=== PATIENT | female | born 1990 | race Caucasian/White ===

== ENCOUNTER 2021-01-07 12:07 | Emergency (ER) | payer OTHER, SELFPAY ==
[2021-01-07 12:41] VITALS: BP 130/72; PULSE 69; RESP 20; TEMP 36.4; O2SAT 100
--- NOTE | 2021-01-07 12:58 | ED.URI ---
HPI - URI/Sore Throat General Chief Complaint: Upper Respiratory Infection Stated Complaint: cough/congestion/no voice Time Seen by Provider: 01/07/21 12:45 Source: patient Mode of arrival: ambulatory Limitations: no limitations History of Present Illness HPI Narrative: Claudia Dan is a 30 yo female with a PMH of anxiety depression who comes to [facility] with 8 days of sinus congestion and sore throat that is now turned into laryngitis she is very hoarse, feels somewhat fatigued. She had Covid November has received 2 vaccinations for Covid. She states she has tried Flonase nasal washes Zyrtec and Tylenol with no improvement Related Data Home Medications Medication Instructions Recorded Confirmed bupropion HCl mg PO 01/07/21 erenumab-aooe [Aimovig mg SUBCUT 01/07/21 Autoinjector] fluoxetine mg 01/07/21 fluoxetine mg 01/07/21 naproxen 01/07/21 Allergies Allergy/AdvReac Type Severity Reaction Status Date / Time prednisone Allergy Intermediate HIVES Verified 01/29/18 08:00 Review of Systems Review of Systems: Narrative: CONSTITUTIONAL: Denies fever, chills, sweats. EYES: Denies visual changes, redness, discharge. ENT: Has rhinorrhea, has congestion, now mild sore throat, otalgia. Very hoarse CARDIOVASCULAR: Denies chest pain, palpitations, edema. RESPIRATORY: Denies dyspnea, wheezing, cough GASTROINTESTINAL: Denies abdominal pain, nausea, vomiting, diarrhea. GENITOURINARY: Denies dysuria, hematuria, abnormal discharge SKIN: Denies rash or itching. NEUROLOGIC: Denies numbness, or focal weakness. PSYCHIATRIC: Denies anxiety or depression. [facility] Past Medical History Medical History Anxiety Depression Family History Family History (Updated 06/12/14 @ 07:13 by DOCTOR UNKNOWN) Grandparent Family history of coronary artery disease Other Diabetes mellitus Family history of malignant neoplasm of cervix Social History Social History Smoking status: Never smoker Alcohol intake: current Comments At time of signature, I agree with nursing past medical, surgical, social and family history. There is no relevant family history pertinent to the presenting complaint. Exam Narrative: Exam Narrative: GENERAL: This is a well-nourished, well-developed patient, in mild distress. HEAD: normocephalic, atraumatic. EYES: Sclera clear/white. Vision is grossly intact. EARS: External ears normal, auditory canals erythematous and without drainage, TMs normal without perforation. Hearing grossly intact. NOSE: External nose normal with nasal discharge, nares with redness, no rhinorrhea. THROAT: Mucous membranes moist, posterior pharynx mild erythema NECK: Neck supple, non-tender CARDIOVASCULAR: Regular rate and rhythm without murmurs, gallops, or rubs. RESPIRATORY: Clear to auscultation. Breath sounds equal bilaterally. No wheezes, rales, or rhonchi. GASTROINTESTINAL: Abdomen soft, non-tender, SKIN: warm, intact with no suspicious lesions or rash, good texture and turgor. NEURO: awake, alert, and oriented to person, place and time. There were no obvious focal neurologic abnormalities. Steady gait EXTREMITIES: Normal range of motion. BACK: Nontender without deformity Course Course Emergency Course: Patient comes to [facility] with 8 days of sinus congestion sore throat and laryngitis use has already treated the symptoms with Flonase Tylenol Zyrtec and nasal washes without any improvement Discussed treatment of symptoms with more aggressive means started on a Augmentin and prednisone x5 days. Patient to continue Zyrtec-patient to hydrate well Follow-up with primary care physician Vital Signs Vital signs: Vital Signs Temperature 97.5 F L 01/07/21 12:41 Pulse Rate 69 01/07/21 12:41 Respiratory Rate 20 01/07/21 12:41 Blood Pressure 130/72 01/07/21 12:41 Pulse Oximetry 100
== END 2021-01-07 13:10 | disposition home or self-care (01) ==
PROVIDERS: Emergency Provider Nurse Practitioner; PCP Registered Nurse
DX: J04.0 Acute laryngitis (principal); J06.9 Acute upper respiratory infection, unspecified; F41.9 Anxiety disorder, unspecified; F32.9 Major depressive disorder, single episode, unspecified
CPT/HCPCS: 99213; G0463

== ENCOUNTER 2021-08-13 11:02 | Outpatient (CLI) | payer OTHER, SELFPAY ==
[2021-08-13 11:43] LABS: Add Urine Microscopic? NO; Appearance Urine Clear (Clear); Basophils Percent Auto 0.3 % (0.2-1.2); Bilirubin Urine Negative (Negative); Blood Urine Negative (Negative); Color Urine Straw (Yellow); Eosinophils Absolute Auto 0.1 K/mm3 (0-0.3); Eosinophils Percent Auto 0.5 % (0-4.4); Glucose Urine UA Negative (Negative); Hematocrit 31.7 % (37.0-47.0); Hemoglobin 9.8 g/dL (12.0-15.0); Immature Granulocyte Absolute 0.07 K/mm3 (0.00-0.031); Immature Granulocyte Percent A 0.6 % (0-0.5); Ketones Urine Negative (Negative); Leukocyte Esterase Ur Negative LEU/UL (NEGATIVE); Lymphocytes Absolute Auto 1.52 K/mm3 (0.9-3.2); Lymphocytes Percent Auto 12.7 % (18.3-44.2); Mean Corpuscular HGB Conc 30.9 g/dl (32-36); Mean Corpuscular Hemoglobin 27.1 pg (26-34); Mean Corpuscular Volume 87.6 fl (80-100); Mean Platelet Volume 10.6 fl (7.4-10.4); Monocytes Absolute Auto 0.7 K/mm3 (0.1-0.6); Monocytes Percent Auto 5.9 % (2.6-8.5); Neutrophils Absolute Auto 9.6 K/mm3 (1.3-6.7); Nitrate Urine Negative (Negative); Platelet Count Result 277 k/mm3 (150-375); Protein Urine Negative (Negative); Red Blood Count 3.62 M/mm3 (4.2-5.4); Red Cell Distribution Width 16.1 % (11.5-14.5); Specific Grav Ur 1.005 (1.001-1.035); Urobilinogen Urine Negative mg/dL (<2.0)
[2021-08-13 11:45] VITALS: BP 138/61; PULSE 84
[2021-08-13 12:00] VITALS: BP 119/78; PULSE 82
[2021-08-13 12:00] LABS: Alanine Aminotransferase 13 U/L (4-35); Albumin Level 3.6 g/dL (3.5-5.1); Alkaline Phosphatase 123 U/L (38-126); Anion Gap 8 mmol/L (8-16); Aspartate Amino Transferase 15 U/L (14-36); Bilirubin,Total 0.3 mg/dL (0.2-1.3); Blood Urea Nitrogen 5 mg/dL (7-17); Calcium 8.5 mg/dL (8.4-10.2); Carbon Dioxide 21 mmol/L (22-30); Chloride 107 mmol/L (98-107); Estimated Glomerular Filt Rate > 60; Glucose 156 mg/dL (65-110); Potassium 3.9 mmol/L (3.4-5.0); Sodium 136 mmol/L (137-145); Uric Acid 4.8 mg/dL (2.5-7.5)
[2021-08-13 12:15] VITALS: BP 117/66; PULSE 79
[2021-08-13 12:30] VITALS: BP 118/68; BP 138/61; PULSE 81; PULSE 83
--- NOTE | 2021-08-13 12:35 | PC.NURSE ---
Dr Pedroza notified of lab results and BP's. OK to dc home with HIP precautions.
[2021-08-13 14:00] LABS: Creatinine Urine 37.7 mg/dL; Total Protein Urine Random 15 mg/dL
== END 2021-08-13 12:42 | disposition home or self-care (01) ==
LOC: ANHOBOP 11:08 → ANHOBPP 11:16
PROVIDERS: PCP Registered Nurse; Visit Provider Obstetrics & Gynecology
DX: O13.9 Gestational [pregnancy-induced] hypertension without significant proteinuria, unspecified trimester (principal)
CPT/HCPCS: 36415; 59025; 80053; 81003; 82570; 84156; 84550; 85025; 87086; 99199

== ENCOUNTER 2021-09-20 14:11 | Outpatient (RCR) | payer OTHER, SELFPAY ==
[2021-09-20 15:27] VITALS: BP 120/72; PULSE 84
== END 2021-10-14 13:44 | disposition home or self-care (01) ==
LOC: ANHOBOP 14:11
PROVIDERS: PCP Registered Nurse; Visit Provider Obstetrics & Gynecology
DX: O36.8130 Decreased fetal movements, third trimester, not applicable or unspecified (principal); Z3A.36 36 weeks gestation of pregnancy
CPT/HCPCS: 59025

== ENCOUNTER 2021-10-01 10:05 | Observation (INO) | payer OTHER, SELFPAY ==
--- NOTE | 2021-10-01 10:05 | OBADM ---
This patient, Claudia Dan, admitted to the OB room OB Post 117 for observation. Patient/family oriented to hospital policies and general routines including ID bracelet, bed and alarms, visiting hours, pain management, procedures, bathroom and other care routines, personal items, smoking policy, room service/diet, and visiting hours. Patient/Family are encouraged to report perceived risks to care and to ask questions if they do not understand what they are told or what they should do.
[2021-10-01 12:15] VITALS: BP 123/78; PULSE 81
[2021-10-01 12:30] VITALS: BP 123/78; PULSE 90
[2021-10-01 12:45] VITALS: BP 128/75; PULSE 86
--- NOTE | 2021-10-20 16:57 | PM.OBTRLD ---
OB - Triage/Final Diagnosis Visit Information Comments/Additional reasons for admission: I have assessed the risk for this patient, Claudia Dan, and determined that she would benefit from observation care. Final Diagnosis (1) Vaginal spotting: Code(s): N93.9 - Abnormal uterine and vaginal bleeding, unspecified Status: Acute
== END 2021-10-01 12:55 | disposition home or self-care (01) ==
PROVIDERS: Admitting Provider Obstetrics & Gynecology; PCP Registered Nurse; Visit Provider Obstetrics & Gynecology
DX: O26.853 Spotting complicating pregnancy, third trimester (principal); Z3A.38 38 weeks gestation of pregnancy
CPT/HCPCS: G0378; G0379

== ENCOUNTER 2021-10-05 12:23 | Inpatient (IN) | payer OTHER, SELFPAY ==
[2021-10-05] VITALS (137 sets, daily range): BP systolic 90–134; BP diastolic 43–83; PULSE 59–122; RESP 18–20; TEMP 36.8–37.7; O2SAT 97–100; BMI 45.6
[2021-10-05] MEDS: LACTATED RINGERS 1,000 ML 125 ML IV CONT ×3 (13:54→22:00)
[2021-10-05 13:55] LABS: Basophils Percent Auto 0.2 % (0.2-1.2); Eosinophils Percent Auto 0.3 % (0-4.4); Hematocrit 38.1 % (37.0-47.0); Hemoglobin 12.4 g/dL (12.0-15.0); Immature Granulocyte Absolute 0.06 K/mm3 (0.00-0.031); Immature Granulocyte Percent A 0.6 % (0-0.5); Lymphocytes Absolute Auto 1.55 K/mm3 (0.9-3.2); Lymphocytes Percent Auto 16.8 % (18.3-44.2); Mean Corpuscular HGB Conc 32.5 g/dl (32-36); Mean Corpuscular Hemoglobin 28.1 pg (26-34); Mean Corpuscular Volume 86.4 fl (80-100); Mean Platelet Volume 11.7 fl (7.4-10.4); Monocytes Absolute Auto 0.6 K/mm3 (0.1-0.6); Monocytes Percent Auto 6.6 % (2.6-8.5); Neutrophils Percent Auto 75.5 % (45.5-73.1); Platelet Count Result 271 k/mm3 (150-375); Red Blood Count 4.41 M/mm3 (4.2-5.4); Red Cell Distribution Width 17.3 % (11.5-14.5); White Blood Count 9.2 K/mm3 (4.5-10.0)
[2021-10-05] MEDS: AMPICILLIN 2 GM/NS 100 ML 2 GM/100 ML BAG IVPB (13:56)
--- NOTE | 2021-10-05 13:59 | LDADM ---
This patient, Claudia Dan, was admitted to Labor/Delivery/Recovery 106 on 10/05/21 at 12:23. Plans for labor, pain management and were discussed with patient. Patient/family oriented to hospital policies and general routines including ID bracelet, bed and alarms, visiting hours, pain management, procedures, bathroom and other care routines, personal items, smoking policy, room service/diet and guest tray routines, infant security routines, and visiting hours. Patient/Family are encouraged to report perceived risks to care and to ask questions if they do not understand what they are told or what they should do. See OBIX for further documentation.
--- NOTE | 2021-10-05 15:52 | WPDANESEPPF ---
Anes - Initial Pre Proc Eval Date/Time: 10/05/21 15:52 Surgeon: Richard Resendez MD Pre Op Diagnosis: Rupture of Membrane Patient Data Age: 31 Gender: F Height: 1.65 m Weight: 124.5 kg Last Vital Signs Temp 36.9 C 10/05/21 14:10 Pulse 80 10/05/21 15:31 Resp 18 10/05/21 14:10 BP 121/68 10/05/21 15:31 Allergies Allergy/AdvReac Type Severity Reaction Status Date / Time No Known Allergies Allergy Verified 10/05/21 13:57 Home Medications Medication Instructions Recorded Confirmed Type fluoxetine 20 mg 01/07/21 History fluoxetine 40 mg 01/07/21 History Zyrtec 10 mg PO DAILY 09/13/21 09/13/21 History docusate sodium [Colace] 100 mg PO DAILY 09/13/21 09/13/21 History ferrous sulfate 325 mg PO DAILY 09/13/21 09/13/21 History folic acid 0.8 mg PO DAILY 09/13/21 09/13/21 History prenat.vits,meagan,zau-[id number] 1 tablet PO DAILY 09/13/21 09/13/21 History Laboratory Tests 10/05/21 10/05/21 10/05/21 13:28 13:28 13:28 WBC 9.2 K/mm3 K/mm3 (4.5-10.0) RBC 4.41 M/mm3 M/mm3 (4.2-5.4) Hgb 12.4 g/dL g/dL (12.0-15.0) Hct 38.1 % % (37.0-47.0) MCV 86.4 fl fl (80-100) MCH 28.1 pg pg (26-34) MCHC 32.5 g/dl g/dl (32-36) RDW 17.3 % H % (11.5-14.5) Plt Count 271 k/mm3 k/mm3 (150-375) MPV 11.7 fl H fl (7.4-10.4) Immature Gran % (Auto) 0.6 % H % (0-0.5) Neut % (Auto) 75.5 % H % (45.5-73.1) Lymph % (Auto) 16.8 % L % (18.3-44.2) Bent % (Auto) 6.6 % % (2.6-8.5) Eos % (Auto) 0.3 % % (0-4.4) Baso % (Auto) 0.2 % % (0.2-1.2) Lymph # (Auto) 1.55 K/mm3 K/mm3 (0.9-3.2) Bent # (Auto) 0.6 K/mm3 K/mm3 (0.1-0.6) Eos # (Auto) 0.0 K/mm3 K/mm3 (0-0.3) Baso # (Auto) 0.0 K/mm3 K/mm3 (0.0-0.1) Abs Immat Gran (auto) 0.06 K/mm3 H K/mm3 (0.00-0.031) Absolute Neuts (auto) 7.0 K/mm3 H K/mm3 (1.3-6.7) Absolute Nucleated RBC 0.0 K/mm3 K/mm3 (0.0-0.012) Nucleated RBC % 0.0 % % (0.0-0.2) RPR Pending Blood Type A Positive Antibody Screen Negative Patient hx anesthesia problems: none Family hx anesthesia problems: none Results Review: All pre-operative results and documents have been reviewed as part of the pre-operative evaluation. [facility] Past Medical History Medical History Anxiety Depression Family History Family History (Updated 10/05/21 @ 14:02 by Anais Zaragoza RN) Grandparent History of blood clots Brain tumor Diabetes mellitus Mesothelioma Family history of coronary artery disease Cataract Glaucoma Other Family history of malignant neoplasm of cervix Mother Anxiety A-fib Depression Father History of blood clots Blood clot in vein Sibling Heart murmur of Anxiety Depression Social History Social History Smoking status: Never smoker Alcohol intake: current Substance use: never Spiritual care concerns: No Anes - Eval Final PreProcedure Day of Procedure 10/05/21 15:52 Patient weight: morbidly obese Heart: regular rate and rhythm Lungs: clear to auscultation and normal air movement Airway: Mallampati scale class II Neurological: alert and oriented Last oral intake: >/= 8 hours ASA classification: III Emergent: no Anesthetic plan: proceed Anesthesia type and monitoring: regional epidural Results Review: All pre-operative results and documents have been reviewed as part of the pre-operative evaluation. Informed Consent: The patient's anesthetic plan and its attendant risks and benefits were discussed with the patient/family/POA. Questions were solicited and answers provided to the satisfaction of the patient/family/POA.
[2021-10-05] MEDS: AMPICILLIN 1 GM/NS 50 ML 1 GM/50 ML BAG IVPB ×2 (18:02→22:00)
--- NOTE | 2021-10-05 18:33 | WPDOBADMIT ---
Obstetrics - Admit Note Admission Note: record reviewed. Additions to the history and/or subsequent changes in the physical findings follow. 31 y/o G1 at 38 6/7 weeks here with SROM at 1124. GBS pos. Feeling contractions. Now comfortable with epidural. AVSS NST reactive TOCO: contractions irregularly ABD soft, nontender, gravid, vertex EXT nontender Cervix 4-5/90/-1. IUPC placed. A: IUP at term with SROM. GBS pos. P: Augment as needed. Continue ampicillin.
[2021-10-05] MEDS: ONDANSETRON INJ 4 MG/2 ML VIAL IV PUSH (20:52)
[2021-10-06] VITALS (212 sets, daily range): BP systolic 104–149; BP diastolic 52–113; PULSE 70–203; RESP 16–18; TEMP 36.6–38.3; O2SAT 83–100
[2021-10-06] MEDS: OXYTOCIN 30 UNITS/NS 500 ML 30 UNITS/500 ML BAG 6 UNITS IV CONT (00:25)
[2021-10-06] MEDS: AMPICILLIN 1 GM/NS 50 ML 1 GM/50 ML BAG IVPB ×3 (02:27→10:45)
[2021-10-06] MEDS: LACTATED RINGERS 1,000 ML 125 ML IV CONT (03:51)
--- NOTE | 2021-10-06 08:30 | PM.OBPNLAB ---
Pain Control Date/time seen: 10/06/21 5962 Comments: Comfortable with epidural Pelvic Exam Dilation (cm): 9 station: -1 Comments: IUPC replaced Contractions Contraction pattern: Irregular Status status: Category l Assessment and Plan Pitocin rate (mU/min): 10 Comments: A: Protracted dilation in labor. P: Reviewed with patient in detail. Have replaced IUPC. The patient would like to continue labor.
[2021-10-06 12:58] LABS: Rapid Plasma Reagin Non-Reactive (NonReactive)
--- NOTE | 2021-10-06 13:30 | PM.OBPNLAB ---
Pain Control Date/time seen: 10/06/21 13:30 Comments: Comfortable with epidural. Pushing well for 1.5 hours. Pelvic Exam Dilation (cm): 10 station: -1 Contractions Contraction frequency: 3 Contraction pattern: Regular Status status: Category ll Assessment and Plan Comments: No discernable descent after 1.5 hours of pushing. Pt. would like to try pushing a little longer. Will reevaluate in 30-40 min.
--- NOTE | 2021-10-06 14:09 | PM.IMHP ---
H&P: HPI History of Present Illness Date/Time: 10/06/21 14:08 31 y/o G1 at 39 weeks with SROM yesterday. GBS pos, on ampicillin. Have been augmenting labor, and she has had slow progress. Finally has dilated completely and has pushed for greater than two hours with no discernable descent. I have offered primary . Chief Complaint: Water broke Review of Systems Review of Systems: All systems reviewed & are unremarkable except as noted in HPI and below PMFSH Past Medical History Medical History Anxiety Depression Family History Family History Grandparent History of blood clots Brain tumor Diabetes mellitus Mesothelioma Family history of coronary artery disease Cataract Glaucoma Other Family history of malignant neoplasm of cervix Mother Anxiety A-fib Depression Father History of blood clots Blood clot in vein Sibling Heart murmur of Anxiety Depression Social History Social History Smoking status: Never smoker Alcohol intake: current Substance use: never Spiritual care concerns: No Meds Home Medications and Allergies Home Medications Medication Instructions Recorded Confirmed Type fluoxetine 20 mg 01/07/21 History fluoxetine 40 mg 01/07/21 History Zyrtec 10 mg PO DAILY 09/13/21 09/13/21 History docusate sodium [Colace] 100 mg PO DAILY 09/13/21 09/13/21 History ferrous sulfate 325 mg PO DAILY 09/13/21 09/13/21 History folic acid 0.8 mg PO DAILY 09/13/21 09/13/21 History prenat.vits,meagan,cwg-kutr-bgvpq 1 tablet PO DAILY 09/13/21 09/13/21 History Allergies Allergy/AdvReac Type Severity Reaction Status Date / Time No Known Allergies Allergy Verified 10/05/21 13:57 Vital Signs Vital Signs - 24 hr 10/05/21 14:01 10/05/21 14:10 10/05/21 14:31 Temperature 36.9 C Pulse Rate 79 88 Respiratory Rate 18 Blood Pressure 123/76 124/68 Pulse Oximetry 10/05/21 15:01 10/05/21 15:10 10/05/21 15:31 Temperature 37.1 C Pulse Rate 81 80 Respiratory Rate 20 Blood Pressure 132/75 121/68 Pulse Oximetry 10/05/21 16:00 10/05/21 16:01 10/05/21 16:05 Temperature Pulse Rate 85 Respiratory Rate Blood Pressure 129/70 Pulse Oximetry 100 100 10/05/21 16:10 10/05/21 16:12 10/05/21 16:14 Temperature Pulse Rate 85 87 122 H Respiratory Rate Blood Pressure 119/69 116/67 90/50 L Pulse Oximetry 100 10/05/21 16:15 10/05/21 16:17 10/05/21 16:18 Temperature 37.3 C Pulse Rate 79 87 Respiratory Rate 18 Blood Pressure 114/70 120/59 L Pulse Oximetry 100 10/05/21 16:19 10/05/21 16:20 10/05/21 16:25 Temperature Pulse Rate 81 77 83 Respiratory Rate Blood Pressure 117/65 124/62 123/69 Pulse Oximetry 100 100 10/05/21 16:30 10/05/21 16:35 10/05/21 16:36 Temperature Pulse Rate 95 77 Respiratory Rate Blood Pressure 121/72 125/68 Pulse Oximetry 100 99 10/05/21 16:40 10/05/21 16:45 10/05/21 16:50 Temperature Pulse Rate 82 84 91 Respiratory Rate Blood Pressure 122/71 118/74 118/66 Pulse Oximetry 99 99 98 10/05/21 16:55 10/05/21 16:56 10/05/21 17:00 Temperature Pulse Rate 74 74 Respiratory Rate Blood Pressure 107/65 110/68 Pulse Oximetry 99 98 10/05/21 17:05 10/05/21 17:10 10/05/21 17:15 Temperature Pulse Rate Respiratory Rate Blood Pressure Pulse Oximetry 99 99 98 10/05/21 17:16 10/05/21 17:20 10/05/21 17:25 Temperature Pulse Rate 79 Respiratory Rate Blood Pressure 101/63 Pulse Oximetry 100 100 10/05/21 17:30 10/05/21 17:31 10/05/21 17:35 Temperature 37.2 C Pulse Rate 74 Respiratory Rate 18 Blood Pressure 108/51 L Pulse Oximetry 100 100 10/05/21 17:40 10/05/21 17:45 10/05/21 17:46 Temperature Pulse Rate 75 Respiratory Rate Bl
[2021-10-06] MEDS: KETOROLAC 30 MG/ML VIAL (*BKC) IV PUSH (14:50)
--- NOTE | 2021-10-06 15:18 | PM.OBPRVD ---
OB - Delivery Note Procedure Delivery date: 10/06/21 Procedure: Procedures Operation Date: 10/06/21 14:25 <No data on this case meets the specified criteria> Primary low transverse delivery Induction method: none Delivery augmentation: pitocin Delivery monitor: external FHT, external uterine and internal uterine Route of delivery: Specimen: Yes (cord blood) Quantitative Blood Loss (ml): 780 Anesthesia type: Epidural Disposition: PACU Complications: None Narrative: The patient was taken to the operating room where she was prepared and draped in the usual sterile fashion in dorsal supine position with a leftward tilt. She received cefazolin preoperatively. Epidural anesthesia was found to be adequate. A Pfannenstiel skin incision was made and carried through to the underlying layer of the fascia. The fascia was incised in the midline and the incision was extended laterally. The fascia was dissected free of the underlying rectus muscles. The rectus muscles were in the midline. The peritoneum was identified, tented up and entered sharply. The peritoneal incision was extended superiorly and inferiorly with good visualization of the bladder. The bladder blade was placed. The vesicouterine peritoneum was identified, tented up and entered sharply. The incision was extended laterally and the bladder flap was developed. The bladder blade was replaced. The uterus was then incised sharply in a transverse fashion along the lower uterine segment. The incision was extended laterally. The infant's head was delivered atraumatically to the sterile field, followed by the body. The nose and mouth were bulb suctioned. After a delay, the cord was clamped and cut. The infant was handed off the field. Cord blood was collected. The placenta was removed manually and was passed off the field. The uterus was exteriorized and cleared of all clots and debris. The uterine incision was reapproximated using 0 Monocryl in a running, locked fashion. Excellent hemostasis resulted as did excellent reapproximation of the normal anatomy. The uterus was returned the abdomen. The pelvis was irrigated copiously with warmed normal saline. Rigorous hemostasis was assured. The fascial layer was reapproximated using 0 Vicryl in a running fashion. The skin was closed with a running, subcuticular stitch of 4 0 Vicryl. Dermaflex was applied externally. Sponge, lap, needle and instrument counts were correct. The patient was taken to the recovery room in stable condition. The went to the nursery in stable condition. I was present and scrubbed the entire procedure. [place] Baby Date of : 10/06/21 Time of : 14:45 Weeks of gestation at delivery: 39 gender: Female Weight (pounds): 9 Weight (ounces): 5 Placenta delivery description: Manual Removal and Normal Configuration cord vessel description: 3 Vessels and Delayed Cord Clamping score one minute: 6 score five minutes: 9
--- NOTE | 2021-10-06 15:21 | PM.OBDSVD ---
DS: Admitting Diagnosis Discharge Date 10/08/21 Admitting Diagnosis IUP at 38 6/7 weeks SROM GBS colonization DS: Discharge Diagnosis Discharge Diagnosis (1) delivery delivered: Code(s): O82 - Encounter for delivery without indication Status: Acute (2) GBS bacteriuria: Code(s): R82.71 - Bacteriuria Status: Acute OB - DS: Summary OB Procedures : None OB Procedures Intrapartum: OB Procedures: : None Peripartum Data Procedures: Procedures Operation Date: 10/06/21 14:25 <No data on this case meets the specified criteria> Primary LTCS DS: Data Data Completed and Pending Labs on day of discharge: Labs from last 24 hours 10/05/21 13:28 RPR Non-reactive Discharge Plan Discharge Attending physician on discharge: Richard Resendez Consulting providers: Eric Ashraf Discharging Clinician: Richard Resendez Patient Disposition: Home, Self-Care Activity: may shower, may drive after 2 weeks and pelvic rest Diet: regular Wound Care Instructions: follow printed instructions Discharge Instructions: Education: Mom and Baby Guide Given to: Mother Follow-Up: Call your delivering provider's office for an appointment to be seen in: 4 Weeks Mom and baby should come to the [facility] for the follow-up appointment. Appointment Date/Time: Monday, October 11, 2021 at 11:00 am What to expect at your follow-up visit: Physical Assessment Call [phone] if you are unable to keep your appointment time. BREAST CARE: * Wear a snug supportive bra. * For engorgement discomfort: Breast Feeding: * Apply warm moist washcloths * Express milk as needed to relieve engorgement * Wear loose clothing Bottle Feeding: * May apply ice packs * For sore nipples: * Identify correct latch-on * Apply warm moist washcloths before and after nursing * Air dry nipples after nursing * May apply Lansinoh cream to nipples ABDOMINAL INCISION: (if applicable) * Allow incision to air dry * Do NOT use lotions for powders on your incision * When showering, allow soap and water to run over the incision, but do not wash incision PERINEAL CARE: * Until bleeding stops, use your kyle bottle after urinating * Change your pad frequently throughout the day * You may take sitz baths several times a day (fill your bathtub with warm water and soak for 20 minutes.) Do NOT bathe in the water * No tub baths until seen by your physician - You may shower ACTIVITY: * Rest as much as possible. * Do not exercise or lift anything heavier than your baby (such as laundry or other children.) * Avoid stairs or driving as much as possible. * Do not put anything into the vagina. No douching, tampons, or sexual activity until seen by physician. NOTIFY PHYSICIAN IF YOU HAVE ANY QUESTIONS OR IF ANY OF THE FOLLOWING SYMPTOMS OCCUR: * If your episiotomy or incision becomes red, swollen, or more painful than what you have experienced in the hospital. * If your vaginal bleeding becomes foul smelling. * If your vaginal bleeding becomes more heavy than a period or if your bleeding changes from pink to bright red. However, you may pass an occasional walnut-sized clot once or twice for the first week . * If you experience a sharp, shooting pain in you calves. * If you discover a hard, reddened area on your breast or if you experience flu-like symptoms. DIET: * Eat regular, well-balanced meals. * Drink plenty of fluids daily. If , drink to thirst. Per Dr. Angélica Hernandez, Call or return if temperature above 100.4? F, increased abdominal pain, increased vaginal bleeding or any new problems. Patient Instructions: Antibiotic Form Follow-up/Referrals: Richard Resendez MD [Physician] - 4 Weeks Discharge Medication
--- NOTE | 2021-10-06 18:15 | OBPPTRN ---
Patient transferred to post room #285 via bed. Support person present. Oriented to unit, room, information board, rooming in, admission packet and security measures. Patient verbalizes understanding.
[2021-10-06] MEDS: IBUPROFEN 600 MG TABLET PO (21:17)
[2021-10-06] MEDS: DEXTROSE 5%/0.45% SOD CHL 1,000 ML 125 ML IV CONT (23:04)
[2021-10-07] VITALS: BP 110/73; PULSE 83; RESP 18; TEMP 36.9; O2SAT 99
[2021-10-07] MEDS: HYDROcodone/acetaminophen (*CRX) 5-325 MG TABLET 1 TAB PO ×4 (01:52→16:46)
[2021-10-07 04:10] VITALS: BP 130/83; PULSE 76; RESP 16; TEMP 37.2
[2021-10-07 04:23] LABS: Basophils Absolute Auto 0.1 K/mm3 (0.0-0.1); Basophils Percent Auto 0.3 % (0.2-1.2); Eosinophils Absolute Auto 0.1 K/mm3 (0-0.3); Eosinophils Percent Auto 0.6 % (0-4.4); Hematocrit 28.3 % (37.0-47.0); Hemoglobin 9.2 g/dL (12.0-15.0); Immature Granulocyte Absolute 0.12 K/mm3 (0.00-0.031); Immature Granulocyte Percent A 0.7 % (0-0.5); Lymphocytes Absolute Auto 2.03 K/mm3 (0.9-3.2); Lymphocytes Percent Auto 11.7 % (18.3-44.2); Mean Corpuscular HGB Conc 32.5 g/dl (32-36); Mean Corpuscular Hemoglobin 28.5 pg (26-34); Mean Corpuscular Volume 87.6 fl (80-100); Mean Platelet Volume 11.8 fl (7.4-10.4); Monocytes Percent Auto 5.8 % (2.6-8.5); Neutrophils Percent Auto 80.9 % (45.5-73.1); Platelet Count Result 201 k/mm3 (150-375); Red Blood Count 3.23 M/mm3 (4.2-5.4); Red Cell Distribution Width 17.5 % (11.5-14.5); White Blood Count 17.3 K/mm3 (4.5-10.0)
--- NOTE | 2021-10-07 06:16 | WPDANLDPN2 ---
Anes-Prog Note L&D Date/Time: 10/07/21 06:16 Comfortable throughout: labor and delivery Neuraxial method: epidural Epidural/Spinal procedure site: clean & non-tender Neuro status: Neuro function grossly intact. Cardiovascular status: normal Respiratory status: normal Airway patency: baseline Mental status: baseline Post-Op hydration status: normal Vital Signs: Last Vital Signs Temp 99.0 F 10/07/21 04:10 Pulse 76 10/07/21 04:10 Resp 16 10/07/21 04:10 BP 130/83 10/07/21 04:10 Pulse Ox 99 10/07/21 00:00 Pain score (VAS): 2 I/O: Intake & Output 10/06/21 10/06/21 10/07/21 15:59 23:59 07:59 Intake Total 1440 Output Total 450 750 Balance -450 690 Post-procedural complaints: none Patient feedback: Patient satisfied with anesthetic care.
--- NOTE | 2021-10-07 06:17 | WPDANLDNPN2 ---
Anes-Prog Note L&D-Neuraxial Date/Time: 10/07/21 06:17 Neuraxial medications: epidural PF morphine Opiod-related complaints: none Patient feedback: Patient satisfied with post-operative pain management.
[2021-10-07 08:00] VITALS: BP 107/65; BP 107/67; PULSE 75; RESP 18; TEMP 36.2; TEMP 36.3; O2SAT 100
[2021-10-07] MEDS: LANOLIN (LANSINOH) 7.5 GM CREAM 1 APPLIC TOPICAL (08:16)
[2021-10-07] MEDS: IBUPROFEN 600 MG TABLET PO ×2 (08:16→16:46)
[2021-10-07] MEDS: MULTIVIT/MIN/PREN/FOL AC/IRON TABLET 1 TAB PO (08:17)
[2021-10-07] MEDS: DOCUSATE SODIUM 100 MG CAPSULE PO ×2 (08:17→16:45)
[2021-10-07] MEDS: FLUoxetine HCL 20 MG CAPSULE 60 MG PO (08:17)
[2021-10-07] MEDS: POLYSACCHARIDE IRON COMPLEX 150 MG CAPSULE PO ×2 (08:18→16:46)
--- NOTE | 2021-10-07 08:30 | PC.NURSE ---
Mother requests assist with latch, mother states infant is sleepy and has difficulties latching and maintaining latch. Mother has used the nipple shield and has pumped a few times. keeps tongue back and does not thrust forward, frenulum is not noted, both lips flange easily, recessed chin noted. Skin is intact on both nipples, no redness or bruising noted, nipples appear flat. Reviewed infant feeding cues, frequencies, duration of feedings, feeding elimination flow sheet, and signs of adequate intake. Demonstrated stimulation techniques to wake for feeding. Assisted with to breast. Reviewed positioning/alignment in cross cradle, holding breast in ?U? hold and guided asymmetrical latch on. Reviewed rational for each. made a few eager attempts to latch with short bursts of suckling then release latch. Infant did not draw nipple in deeply. Several attempts made in 15 minutes without an effective latch. Discussed nipple shield use and how shield may assist with latch. Reviewed nipple shield precautions and possible complications. Instructions given on application and cleaning of shield. Patient able to return demonstration on proper application of shield. Discussed the need for regular pumping if infant continues to nurse with the shield. Patient verbalizes understanding. With shield in place, able to latch correctly within a few attempts. made a weak effort to suckle in short bursts with long pausing and falling asleep. Reviewed signs of a correct latch, effective nursing and suck swallow ratio. Discussed the difference of effective vs ineffective feeding. Reviewed is latching with good burst of suckling, she is not feeding consistently with adequate milk transfer at this time and needs to be supplement after /attempts. Feeding options discussed, Feeding Plan is for mother to put to breast each feeding for up to 15 minutes, then pace feed supplement 15-20 mls and pump for 10-15 minutes. Parents are comfortable with supplementation and pumping. If infant begins to nurse effectively with long draws and frequent swallowing noted, infant may decrease supplementation and discontinue pumping. Suggested mother have LC [employer] observe feeding before discontinuing supplementation. Discussed increasing supplementation as infant requires to satisfactions. Reviewed paced feeding and suggested to stop when is satisfied, as long as is having required output. With increased supplementation may not want to feed for 4 hours. Mother will continue to pump on feeding schedule and will increase session to 20 minutes if pumping every 4 hours. Instructed mother to call out for RN assistance if she is unable to latch infant for feeding or she has discomfort with nursing. Instructed feeding should be initiated three hours from start of last feeding or if feeding cues are noted before. Mother voiced understanding of information shared. Assisted mother with pace feeding, has some difficulties with suck swallow.
--- NOTE | 2021-10-07 08:48 | PM.OBPNVD ---
OB - PN: Subj Subjective Date/time seen: 10/07/21 08:48 Narrative: Pain OK. Tolerating diet. OB - PN: Obj Data Labs CBC & Chem 7: 10/07/21 04:01 Labs: Laboratory Results - last 24 hr 10/05/21 10/07/21 13:28 04:01 WBC 17.3 H RBC 3.23 L Hgb 9.2 L D Hct 28.3 L MCV 87.6 MCH 28.5 MCHC 32.5 RDW 17.5 H Plt Count 201 MPV 11.8 H Immature Gran % (Auto) 0.7 H Neut % (Auto) 80.9 H Lymph % (Auto) 11.7 L Bowie % (Auto) 5.8 Eos % (Auto) 0.6 Baso % (Auto) 0.3 Lymph # (Auto) 2.03 Bowie # (Auto) 1.0 H Eos # (Auto) 0.1 Baso # (Auto) 0.1 Abs Immat Gran (auto) 0.12 H Absolute Neuts (auto) 14.0 H Absolute Nucleated RBC 0.0 Nucleated RBC % 0.0 RPR Non-reactive OB - PN A/P Plan Comments: A: POD#1, doing well. P: Routine care. Exam Narrative: AVSS I/O OK ABD soft, nontender, fundus firm. Incision c/d/i. EXT nontender
--- NOTE | 2021-10-07 09:15 | PC.NURSE ---
Reviewed instructions given on breast pump care and usage, pumping schedule, nipple care, and collection and storage of breast milk. Encouraged [id number], breast massage and manual expression to stimulate supply. Assessed patient for correct flange size, placement and draw. Patient verbalizes and demonstrates understanding of instructions. Discussed colostrum vs milk supply and mother may not see more than a few drops the first few days, milk should transition in by day 3 and she may see more volume pumped per session.
[2021-10-07] MEDS: SIMETHICONE 80 MG TAB.CHEW PO (11:21)
[2021-10-07 13:20] VITALS: BP 128/80; PULSE 88; RESP 18; TEMP 36.3; O2SAT 97
[2021-10-07 20:02] VITALS: BP 123/73; PULSE 80; RESP 18; TEMP 36.6
[2021-10-08] MEDS: IBUPROFEN 600 MG TABLET PO ×2 (00:09→10:38)
[2021-10-08] MEDS: ACETAMINOPHEN 325 MG TABLET 650 MG PO (02:47)
[2021-10-08 07:40] VITALS: BP 108/65; PULSE 78; RESP 16; TEMP 36.7; O2SAT 100
--- NOTE | 2021-10-08 07:53 | PM.OBPNVD ---
OB - PN: Subj Subjective Date/time seen: 10/08/21 07:53 Patient comments: no complaints and pain well controlled baby status: doing well OB - PN: Obj Data Labs CBC & Chem 7: 10/07/21 04:01 OB - PN A/P Plan day: 2 Plan: routine care, discharge home and follow up 6 weeks (4) Time Spent With Patient Time: Total time spent is greater than 50% in coordination of care (as documented) at patient's floor/unit and/or counseling patient: Time with patient: less than 15 minutes Review of Systems Review of Systems: All systems reviewed & are unremarkable except as noted in HPI and below Exam Const: General: no acute distress Eyes: General: appearance normal, both eyes and all related structures Neck: Neck: supple and no JVD Thyroid: thyroid normal Resp: Effort & Inspection: normal respiratory effort Auscultation: clear to auscultation bilaterally Cardio: Rate: regular rate Rhythm: regular rhythm GI: Inspection: non-distended GI Palp: Yes Soft to palpation, No Tenderness to palpation present (GI) and No Guarding due to palpation present (GI) Auscultation: normal bowel sounds : General: Yes bladder normal to palpation External Female Exam: normal external appearance Speculum Exam - Vagina: normal vaginal discharge and No vaginal bleeding Speculum Exam - Cervix: nontender Bimanual exam- vagina & uterus: bladder normal to palpation and No Cervical tenderness present OB/external & speculum: No vaginal bleeding Skin: General skin exam: no rashes or lesions noted Extrem: General: normal to inspection and no edema Psych: Mental Status: mental status grossly normal Affect: normal affect
--- NOTE | 2021-10-08 09:00 | PC.NURSE ---
Observed mother is able to independently latch infant with appropriate positioning/alignment without nipple shield for most feedings. She denies any nipple discomfort, is feeding as required and waking to feed if needed. Infant is more awake and making eager attempts with short bursts of suckling and maintaining latch Infant is supplemented after all feedings. Infant is currently meeting outcomes for weight, output, jaundice and feeding frequencies. Mother continues to pump after all feedings without difficulties or discomfort. Mother has a pump for home use, assisted mother with use before discharge. Discussed the difference of effective vs ineffective feeding. Reviewed requires supplementation after all feedings. He is latching with good burst of suckling, he is not feeding consistently with adequate milk transfer at this time and continues to need to be supplement after . Feeding plan discussed, Feeding Plan is for mother to put infant to breast each feeding for up to 15 minutes, then pace feed supplement 25-30 mls and pump for 10-15 minutes. Discussed increasing supplementation as requires to satisfactions. Reviewed paced feeding and suggested to stop when is satisfied, as long as is having required output. With increased supplementation infant may not want to feed for 4 hours. Mother will continue to pump on feeding schedule and will increase session to 20 minutes if pumping every 4 hours. If begins to nurse effectively with long draws and frequent swallowing noted, may decrease supplementation and discontinue pumping. Advised not to discontinue supplement until a pre/post feeding evaluation by infant PCP, Follow up RN or LC is completed. Mother states she feels confident to continue feeding plan at home. Reviewed transition to breast milk, signs of adequate intake, and engorgement/relief. Instructed to call ICP if intake/output less than required. Reviewed regular medications mother is taking. Information provided per [facility]. Reviewed community resources on the [facility] website and in the Mom/Baby guide. Information on outpatient services provided. Mother has no further questions at this time.
[2021-10-08] MEDS: FLUoxetine HCL 20 MG CAPSULE 60 MG PO (10:37)
[2021-10-08] MEDS: DOCUSATE SODIUM 100 MG CAPSULE PO (10:39)
[2021-10-08] MEDS: MULTIVIT/MIN/PREN/FOL AC/IRON TABLET 1 TAB PO (10:39)
[2021-10-08] MEDS: POLYSACCHARIDE IRON COMPLEX 150 MG CAPSULE PO (10:39)
--- NOTE | 2021-10-08 14:22 | PC.NURSE ---
1300 Patient was given the opportunity to view the discharge video Mother & Baby Care, The First Two Weeks and to ask questions. Patient declined viewing the video and has been given the mother/baby guide for home reference.
[2021-10-11 11:34] VITALS: BP 115/61; PULSE 79; RESP 20; TEMP 36.9; O2SAT 100
== END 2021-10-08 13:12 | disposition home or self-care (01) | DRG 540 ==
LOC: ANHLDR 10-06 15:23 → ANHOB2 10-08 10:29 → ANHLDR 10-11 10:14 → ANHOB2 10-11 10:14
PROVIDERS: Admitting Provider Obstetrics & Gynecology; PCP Registered Nurse; Visit Provider Obstetrics & Gynecology
PROC: 10D00Z1 Extraction of Products of Conception, Low, Open Approach (ICD-10-PCS; CPT 59514; principal; 2021-10-06 14:25)
DX: O75.2 Pyrexia during labor, not elsewhere classified (principal); O99.214 Obesity complicating childbirth; E66.01 Morbid (severe) obesity due to excess calories; O99.824 Streptococcus B carrier state complicating childbirth; O62.1 Secondary uterine inertia; O76 Abnormality in fetal heart rate and rhythm complicating labor and delivery; Z3A.39 39 weeks gestation of pregnancy; Z37.0 Single live birth; O32.4XX0 Maternal care for high head at term, not applicable or unspecified
CPT/HCPCS: 36415; 84112; 85025; 86592; 86850; 86900; 86901; A9270; J0131; J0290; J1885; J2274; J2405; J2590; J2795; J7120